=== PATIENT | female | born 1955 | race Caucasian/White ===

== ENCOUNTER 2017-09-11 21:33 | Inpatient (IN) | payer OTHER ==
[~2017-09-11] VITALS: Ht 162.6 cm; Wt 95.6 kg
[~2017-09-11 21:33] MED LIST: FISH OIL 1,001000 M2 PO; FLONASE 0.05%50 MCG NASAL; MACROBID 100 M100 M1 PO; MICARDIS HCT 81 EAC1 PO; PRILOSEC 20 MG20 MG PO; SIMVASTATIN40 MG PO; TOPROL XL50 MG
[2017-09-11 21:37] VITALS: BP 162/66
[2017-09-11] MEDS ORDERED: FISH OIL 1,001000 M2 PO (21:41)
[2017-09-11] MEDS ORDERED: CARDIZEM CD120 MG PO (21:44)
[2017-09-11 22:04] LABS: ABSOLUTE BASOPHILS 0.1 thou/uL (0.0-0.2); ABSOLUTE EOSINOPHILS 0.2 thou/uL (0.0-0.7); ABSOLUTE LYMPHOCYTES 1.6 thou/uL (0.8-5.3); ABSOLUTE MONOCYTES 0.6 thou/uL (0.0-1.2); ABSOLUTE NEUTROPHILS 3.1 thou/uL (1.6-8.1); BASOPHILS 1.4 %; EOSINOPHILS 2.9 %; HEMATOCRIT 38.4 % (37.0-47.0); HEMOGLOBIN 13.3 gm/dL (12.0-15.0); LYMPHOCYTES 28.2 %; MCH 30.1 pg (26.0-34.0); MCHC 34.6 g/dL (28.0-37.0); MCV 87.1 fL (80.0-100.0); MONOCYTES 11.3 %; MPV 8.8 fl. (7.2-11.1); NUCLEATED RBCS 0 /100WBC; PLATELET COUNT* 210 thou/uL (150-400); POLYS 56.2 %; RBC 4.41 mil/uL (4.20-5.00); RDW-CV 13.4 % (10.5-14.5); WBC 5.5 thou/uL (4.0-11.0)
[2017-09-11 22:10] LABS: URINE BILIRUBIN NEGATIVE (Negative); URINE BLOOD NEGATIVE (Negative); URINE CLARITY CLEAR; URINE COLOR STRAW; URINE GLUCOSE-RANDOM NEGATIVE (Negative); URINE KETONES NEGATIVE (Negative); URINE LEUKOCYTES-REFLEX NEGATIVE (Negative); URINE NITRITE-REFLEX NEGATIVE (Negative); URINE PROTEIN NEGATIVE (Negative); URINE SPECIFIC GRAVITY <= 1.005 (1.005-1.030); URINE UROBILINOGEN 0.2 E.U./dl (0.2-1.0)
[2017-09-11 22:13] LABS: ANION GAP 7 mmol/L (7-16); BUN 22 mg/dL (7-18); CALCIUM 9.1 mg/dL (8.5-10.1); CHLORIDE 105 mmol/L (98-107); CO2 30 mmol/L (21-32); CREATININE 0.7 mg/dL (0.6-1.3); GLUCOSE 125 mg/dL (70-99); POTASSIUM 3.2 mmol/L (3.5-5.1); SODIUM 142 mmol/L (136-145)
[2017-09-11 22:15] LABS: PROTIME 9.8 Seconds (9.20-11.50)
[2017-09-11 22:23] LABS: ALBUMIN 3.9 g/dL (3.4-5.0); ALKALINE PHOSPHATASE 73 U/L (46-116); NT-PRO BRAIN NAT PEPTIDE 196 pg/mL (<300); SGOT 16 U/L (15-37); SGPT 31 U/L (30-65); TOTAL BILIRUBIN 0.6 mg/dL (<0.1-1.0); TOTAL PROTEIN 7.7 g/dL (6.4-8.2); TROPONIN-I LEVEL <0.06 ng/mL (<0.06)
[2017-09-11 23:45] VITALS: BP 165/55
[2017-09-11 23:49] VITALS: BP 169/66
[2017-09-12 02:00] LABS: HEMATOCRIT 36.4 % (37.0-47.0); HEMOGLOBIN 12.5 gm/dL (12.0-15.0); MCH 30.2 pg (26.0-34.0); MCHC 34.4 g/dL (28.0-37.0); MCV 87.9 fL (80.0-100.0); MPV 8.7 fl. (7.2-11.1); RBC 4.14 mil/uL (4.20-5.00); RDW-CV 13.5 % (10.5-14.5); WBC 4.8 thou/uL (4.0-11.0)
[2017-09-12 02:20] LABS: ALBUMIN 3.5 g/dL (3.4-5.0); CALCIUM 9.1 mg/dL (8.5-10.1); CREATININE 0.6 mg/dL (0.6-1.3); POTASSIUM 3.8 mmol/L (3.5-5.1); TOTAL BILIRUBIN 0.5 mg/dL (<0.1-1.0); TOTAL PROTEIN 6.9 g/dL (6.4-8.2)
[2017-09-12 04:00] VITALS: BP 160/64
--- NOTE | 2017-09-12 05:40 | NUR ---
PT ADMITTED TO ROOM 231 @ 2335 FROM ER WITH C/O CHEST HEAVINESS AND PALPATATIONS FOR SEVERAL HOURS. HISTORY AND ASSESSEMNT OBTAINED. FALL CONTRACT SIGNED. PT ORIENTED TO ROOM, CALL SYSTEM AND NURSE CONTROL AND TV CONTROLS. PT VERBALIZED GOOD UNDERSTANDING. INSTRUCTED PT ON BEING NPO AFTER MIDNIGHT AND PT VOICED UNDERSTANDING. PT STATED SHE HAD CHEST HEAVINESS, SCORE OF 1 ON PAIN SCALE, DENIED SOB AND RADIATING PAIN. LABS REVIEWED SOFTWARE SUPPORT ANALYST APPLIES WITH ALARMS SET, WILL CONTINUE TO MONITOR. NO ACUTE CHANGES DURING SHIFT
[2017-09-12 09:30] VITALS: BP 144/66
[2017-09-12 11:05] VITALS: BP 147/60
--- NOTE | 2017-09-12 11:44 | EKG ---
[place] [address] ELECTROCARDIOGRAM REPORT Name: ANG ROMO Room: [address] IN [facility]#: [id number] Admission: 09/11/17 Attend Phys: Rajani Gomez MD Discharge: Date of : 59 Report #: [id number] THIS REPORT FOR: //name// [facility] ED Test Date: 2017-09-11 Test Time: 21:40:12 Pat Name: ANG ROMO Department: Room: Gender: F Tow Boat [employer]: : 1955 Requested By: Annette Smyth Order Number: [id number] MD: Eb Townsend Measurements Intervals [place] Rate: 59 P: 29 OR: 233 QRS: 19 QRSD: 100 T: 50 QT: 440 QTc: 436 Interpretive Statements Sinus rhythm Multiple ventricular premature complexes Prolonged OR interval Probable left atrial enlargement Compared to ECG 07/12/2014 06:52:00 Ventricular premature complex(es) now present First degree AV block now present Electronically Signed On 09-12-2017 11:43:57 CDT by Eb Townsend [email or web address] <ELECTRONICALLY SIGNED> By: Eb Townsend MD, FAC 09/12/17 1143 2140 2140 Eb Townsend MD, [facility] /EPI
[2017-09-12 15:14] VITALS: BP 141/62
--- NOTE | 2017-09-12 18:15 | NUR ---
ASSUMED PT CARE AT 0700 PT IS ALERT AND ORIENTED X 4 PT DENIES PAIN OR SOA ON RA, PT IS UP AD KATERINE PT IS NOT A FALL RISK, PT IS NPO PER CARDIOLOGY, CARDIOLOGY ORDERED STRESS ECHO PT WENT DOWN FOR STRESS ECHO WHICH WAS UNABLE TO BE DONE PT CAME BACK STRESS LAB ORDERED LEXISCAN ON PT DID PART ONE PT CAME BACK ABLE TO EAT PHYSICIAN CALLED THIS NURSE ABOUT CARDIOLOGYS PLAN THIS NURSE VERIFIED WITH CARDIOLOGY THAT PT IS STAYING FOR SECOND PART PT IS SB ON THE MONITOR CARDIOLOGY IS AWARE, WILL CONTINUE TO MONITOR
[2017-09-12 19:30] VITALS: BP 144/60
[2017-09-13] VITALS: BP 148/58
[2017-09-13 02:18] VITALS: BP 135/68
[2017-09-13 04:46] LABS: ABSOLUTE BASOPHILS 0.1 thou/uL (0.0-0.2); ABSOLUTE EOSINOPHILS 0.1 thou/uL (0.0-0.7); ABSOLUTE LYMPHOCYTES 1.2 thou/uL (0.8-5.3); ABSOLUTE MONOCYTES 0.6 thou/uL (0.0-1.2); ABSOLUTE NEUTROPHILS 2.2 thou/uL (1.6-8.1); BASOPHILS 1.2 %; EOSINOPHILS 2.9 %; HEMATOCRIT 37.7 % (37.0-47.0); HEMOGLOBIN 12.9 gm/dL (12.0-15.0); LYMPHOCYTES 27.6 %; MCHC 34.2 g/dL (28.0-37.0); MCV 87.6 fL (80.0-100.0); MONOCYTES 15.2 %; MPV 9.2 fl. (7.2-11.1); NUCLEATED RBCS 0 /100WBC; PLATELET COUNT* 195 thou/uL (150-400); POLYS 53.1 %; RDW-CV 13.7 % (10.5-14.5); WBC 4.2 thou/uL (4.0-11.0)
[2017-09-13 05:05] LABS: CREATININE 0.6 mg/dL (0.6-1.3); POTASSIUM 4.5 mmol/L (3.5-5.1)
--- NOTE | 2017-09-13 05:23 | NUR ---
PT AAOX4. NO ACUTE DISTRESS NOTED. PT SLEPT WELL THIS SHIFT, PT DENIES PAIN AND SOB. PT STATES READY TO GET TEST COMPLETED SO SHE CAN BE DCD TODAY. TELEMETRY PACK ITNACT WITH ALARMS SET. NO ACUTE CHANGES DURIGN SHIFT, WILL CONTINUE TO MONITOR. PT AMBUALTED IN [place] SEVERAL TIEMS DURING SHIFT AND DENIED CHEST PAIN OR SOB.
[2017-09-13 05:57] LABS: CALCIUM 8.6 mg/dL (8.5-10.1)
[2017-09-13 09:00] VITALS: BP 140/70
[2017-09-13 12:04] VITALS: BP 139/61; BP 169/88
--- NOTE | 2017-09-13 12:11 | NUR ---
INITIAL ASSESSMENT: Pt evaluated for d/c planning needs. Reviewed chart and spoke with nurse and pt. Pt is alert and oriented. Pt lives in house with spouse and was independent with ADL's prior to admission. 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 Pt uses no DME and has not had home health in the past. Pt plans on returning home on d/c from hospital. Will remain available to assist as needed.
[2017-09-13 15:17] VITALS: BP 144/57
--- NOTE | 2017-09-13 15:21 | NUR ---
ASSUMED PT CARE AT 0700 PT IS ALERT AND ORIENTED X 4 PT DENIES PAIN OR SOA ON RA, PT IS UP AD KATERINE PT IS NOT A FALL RISK, PT IS SB ON THE MONITOR PT HAVING 2ND PART OF STRESS TEST, PT WENT FOR STRESS TEST AWAITING CARDIOLOGY TO READ TEST, CALLED CARDIOLOGY AROUND 1400 CARDIOLOGY HAS NOT READ STRESS YET STATED PHYSICIAN WAS STILL IN CLINIC THIS NURSE NOTIFIED PT, WILL CONTINUE TO MONITOR
[2017-09-13 19:35] VITALS: BP 142/61
[2017-09-14] VITALS (7 sets, daily range): BP systolic 135–152; BP diastolic 54–63
--- NOTE | 2017-09-14 04:09 | NUR ---
PT AAOX$ resp reg adn unlabored skin w/d no acute distress noted. pt states she hopes to go home this am. telemetry pack intact with alarms set. pt denies sob and chest discmfort. no acute changes durign shift will continue to monitor.
--- NOTE | 2017-09-14 12:38 | NUR ---
ASSUMED PT CARE AT 0700 PT IS ALERT AND ORIENTED X 4 PT DENIES PAIN OR SOA ON RA, PT IS UP AD KATERINE PT IS NOT A FALL RISK, PT IS SB ON THE MONITOR, PT IS CLEARED FOR DISHARGE PT HAS NO IV ACCESS, WILL CONTINUE TO MONITOR
[2017-09-14] MEDS ORDERED: COZAAR 25 MG TA25 M1 PO (13:01)
--- NOTE | 2017-09-18 17:04 | CARDNUC ---
[place] [address] CARDIAC NUCLEAR IMAGING REPORT Name: ANG ROMO Room: [address]#: [id number] Admission: 09/11/17 Attend Phys: Rajani Gomez, Discharge: 09/14/17 Date of : 59 Date of Service: 09/18/17 1704 Report #: [id number] THIS REPORT FOR: //name// APPROVED REPORT Imaging Protocol: Stress Tc-99m/Rest Tc-99m 2 days Study performed: 09/12/2017 14:32:00 Indication: Chest pain, Palpitations Patient Location: In-Patient Room #: 231 Stress Tech: Layla Vilchis Stress Nurse: Reyna Bonilla RN NM Tech:TONY Hayward Ht: 5 ft 4 in Wt: 213 lbs BSA: 2.01 m2 BMI: 36.55 Medical History Medical History: HTN, Hyperlipidemia Medications: metoprolol, diltiazem, hydralazine Allergies: No known drug allergies Cardiac Risk Factors: Age, HTN, Hyperlipidemia, FHX of CAD Exercise History: Sedentary Meds Held (24 hrs): - Resting Data Rest SPECT myocardial perfusion imaging was performed in supine position 30 minutes following the intravenous injection of 36.1 mCi of Tc-99m Sestamibi. Time of rest injection: 1010 Date: 09/13/2017 Time of rest imagin The images were gated to evaluate regional wall motion and calculate left ventricular ejection fraction. Administration Route: IV Pharmacologic Stress Pharmacologic stress test was performed by injecting Regadenoson 0.4 mg IV push over 10-15 seconds immediately followed by the intravenous injection of 41.0 mCi of Tc-99m Sestamibi. Time of stress injection: 1545 Date: 09/12/2017 Administration Route: IV Administration Site: Right AC Heart Rate at time of stress injection: 94 bpm. Gated Stress SPECT was performed 40 [place] [address] CARDIAC NUCLEAR IMAGING REPORT Name: ANG ROMO Room: [address]#: [id number] Admission: 09/11/17 Attend Phys: Rajani Gomez, Discharge: 09/14/17 Date of : 59 Date of Service: 09/18/17 1704 Report #: [id number] injection. The images were gated to evaluate regional wall motion and calculate left ventricular ejection fraction. Prone imaging was performed. Stress Test Details Stress Test: Pharmacologic stress was paired with low level exercise. Reason for pharmacologic stress test: physical limitation. HR Resting HR: 51 bpm Max Heart Rate (APMHR): 160 bpm Max HR Achieved: 94 bpm Target HR (85% APMHR): 136 bpm % of APMHR: 58 Recovery HR: 68 bpm BP Resting BP: 152/73 mmHg Max BP: 186/70 mmHg ECG Resting ECG: Sinus Rhythm, normal EKG Stress ECG: Sinus Rhythm, normal EKG ST Change: None Arrhythmia: None Recovery ECG: Sinus Rhythm, normal EKG Recovery ST Change: None Recovery Arrhythmia: None Clinical Reason for Termination: Completed protocol Stress Symptoms: chest pressure Exercise duration: 4 min 0 sec Exercise capacity: 2.3 METs The patient had slight chest pressure in recovery felt to be due to medication affect. Nurse Comments Patient noted chest pressure in early recovery, rated 1, resolved in recovery. Stress ECG Conclusion The baseline 12-lead electrocardiogram showed sinus rhythm without significant ST or T wave abnormality. EKGs obtained during and post Lexiscan infusion showed sinus rhythm with no significant ST segment changes when compared to baseline. There were no [place] [address] CARDIAC NUCLEAR IMAGING REPORT Name: ANG ROMO Room: [address]#: [id number] Admission: 09/11/17 Attend Phys: Rajani Gomez, Discharge: 09/14/17 Date of : 59 Date of Service: 09/18/17 1704 Report #: [id number] arrhythmias. Study Quality Study: Good Artifact: No artifact Study Data At rest, the left ventricular ejection fraction was 74%.. Post stress, the left ventricular ejection was 65%.. TID = 0.87. Perfusion Normal left ventricular perfusion. Wall Motion Normal left ventricular wall motion. Nuclear Conclusion ECG Findings: negative for ischemia Clinical Findings: negative for ischemia Nuclear Findings: negative for ischemia Exercise Capacity: not assessed Left Ventricular Function: normal Risk Study: low Perfusion images show no defect to suggest infarct or ischemia. Left particular systolic function appeared normal on gated studies. This is a low risk study. <Conclusion> The baseline 12-lead electrocardiogram showed sinus rhythm without significant ST or T wave abnormality. EKGs obtained during and post Lexiscan infusion showed sinus rhythm with no significant ST segment changes when compared to baseline. There were no stress-induced arrhythmias. <ELECTRONICALLY SIGNED> By: Maicol Hardwick MD, FACC 09/18/171703 03 03 Maicol Hardwick MD, FACC /INF
== END 2017-09-14 13:25 | disposition home or self-care (01) | DRG 392 ==
LOC: M.ERS 21:33 → M.TBA-ER 22:46 → M.2W 22:46
PROVIDERS: Emergency Medicine; Internal Medicine; ADMIT Internal Medicine
DX: K21.9 Gastro-esophageal reflux disease without esophagitis (principal); I49.3 Ventricular premature depolarization; I10 Essential (primary) hypertension; E78.5 Hyperlipidemia, unspecified; Z87.891 Personal history of nicotine dependence; Z82.49 Family history of ischemic heart disease and other diseases of the circulatory system; Z79.899 Other long term (current) drug therapy

== ENCOUNTER → 2017-11-16 | Outpatient (CLI) | payer OTHER ==
[~2017-11-16] MED LIST changes: +CARDIZEM CD120 MG PO; +COZAAR 25 MG TA25 M1 PO
== END ==
LOC: M.RAD 13:05
DX: Z12.31 Encounter for screening mammogram for malignant neoplasm of breast (principal)

== ENCOUNTER → 2019-05-27 | Outpatient (CLI) | payer OTHER | LOC: M.NUC 07:29 | DX: R10.11 Right upper quadrant pain (principal); R11.2 Nausea with vomiting, unspecified ==

== ENCOUNTER → 2020-05-07 | Outpatient (CLI) | payer OTHER ==
[2020-05-07 14:21] LABS: HEMATOCRIT 39.9 % (37.0-47.0); HEMOGLOBIN 13.5 gm/dL (12.0-15.0); MCH 28.7 pg (26.0-34.0); MCHC 33.8 g/dL (28.0-37.0); MCV 84.9 fL (80.0-100.0); RBC 4.71 mil/uL (4.20-5.00); RDW-CV 13.7 % (10.5-14.5); WBC 5.5 thou/uL (4.0-11.0)
[2020-05-07 14:32] LABS: ALBUMIN 3.9 g/dL (3.4-5.0); ALKALINE PHOSPHATASE 90 U/L (46-116); ANION GAP 6 mmol/L (7-16); BUN 21 mg/dL (7-18); CALCIUM 9.2 mg/dL (8.5-10.1); CHLORIDE 106 mmol/L (98-107); CHOLESTEROL 160 mg/dL (<200); CO2 29 mmol/L (21-32); CREATININE 0.7 mg/dL (0.6-1.3); GLUCOSE 114 mg/dL (70-99); HDL CHOLESTEROL 63 mg/dL (>40); LDL CHOLESTEROL 73 mg/dL (<100); POTASSIUM 3.9 mmol/L (3.5-5.1); SERUM ASSESSMENT Clear; SGOT 14 U/L (15-37); SGPT 30 U/L (30-65); SODIUM 141 mmol/L (136-145); TC:HDL 2.5 Ratio (Not establshd); TOTAL BILIRUBIN 0.4 mg/dL (<0.1-1.0); TOTAL PROTEIN 7.3 g/dL (6.4-8.2); TRIGLYCERIDE 120 mg/dL (<150); VLDL 24 mg/dL (<40)
[2020-05-08 02:06] LABS: GLYCOHEMOGLOBIN (HGB A1C) 5.8 % (4.8-5.6)
== END ==
LOC: M.LAB 13:59
PROVIDERS: ATTEND Registered Nurse
DX: Z12.31 Encounter for screening mammogram for malignant neoplasm of breast (principal); R00.2 Palpitations; I10 Essential (primary) hypertension; E11.9 Type 2 diabetes mellitus without complications

== ENCOUNTER → 2020-08-14 | Outpatient (CLI) | payer OTHER ==
[2020-08-14 09:50] LABS: CALCIUM 8.5 mg/dL (8.5-10.1); CREATININE 0.8 mg/dL (0.6-1.3); POTASSIUM 3.9 mmol/L (3.5-5.1)
== END ==
LOC: M.LAB 09:17
PROVIDERS: ATTEND Internal Medicine Cardiovascular Disease
DX: I10 Essential (primary) hypertension (principal)